=== PATIENT | female | born 1955 | race African-American/Black ===

== ENCOUNTER → 2017-04-03 | Emergency (ER) | payer SELFPAY | END | disposition home or self-care (01) | LOC: D.ER 16:31 | DX: M25.562 Pain in left knee (principal); M17.12 Unilateral primary osteoarthritis, left knee; I10 Essential (primary) hypertension ==

== ENCOUNTER 2018-02-21 10:24 | Emergency (ER) | payer SELFPAY ==
[2018-02-21 11:19] LABS: APPEARANCE HAZY (CLEAR); BACTERIA MODERATE /hpf (NONE SEEN); BILIRUBIN NEGATIVE (NEGATIVE); COLOR YELLOW (YELLOW); EPITHELIAL CELLS 0-5 /hpf (0-5); GLUCOSE NEGATIVE (NEGATIVE); KETONE NEGATIVE (NEGATIVE); NITRITE NEGATIVE (NEGATIVE); PROTEIN NEGATIVE (NEGATIVE); RED CELLS - URINE 0-5 /hpf (0-5); UROBILINOGEN NORMAL (NORMAL); WHITE CELLS - URINE 0-5 /hpf (0-5)
[2018-02-21 11:23] LABS: BASOPHILS 0.3 % (0-2); EOSINOPHILS 2.2 % (0-7); HEMATOCRIT 43.6 % (36.0-48.0); HEMOGLOBIN 13.9 g/dL (12-16); IMMATURE GRANULOCYTES 0.1 % (0-5); LYMPHOCYTES 24.6 % (15-50); MCH 27.4 pg (26.0-34.0); MCHC 31.9 g/dL (31.0-37.0); MEAN PLATELET VOLUME 9.2 fL (7.4-10.4); MONOCYTES 9.4 % (2-11); NEUTROPHILS 63.4 % (40-80); PLATELET COUNT 215 10x3/uL (130-400); RBC 5.07 10x6/uL (4.00-5.40); RDW 14.8 % (11.5-14.5); WBC 7.4 10x3/uL (4.8-10.8)
[2018-02-21 11:43] LABS: ALBUMIN 3.3 g/dL (3.4-5.0); ANION GAP 9.5 mmol/L (8-16); BILIRUBIN - TOTAL 0.33 mg/dL (0.2-1.3); CALCIUM 8.6 mg/dL (8.5-10.1); CARBON DIOXIDE 30.6 mmol/L (21.0-32.0); POTASSIUM - SERUM 4.1 mmol/L (3.5-5.1); PROTEIN - SERUM 7.8 g/dL (6.4-8.2)
== END 2018-02-21 14:56 | disposition home or self-care (01) ==
LOC: D.ER 10:24
PROVIDERS: Emergency Medicine; Nurse Practitioner Family
DX: N20.1 Calculus of ureter (principal); N23 Unspecified renal colic; I10 Essential (primary) hypertension

== ENCOUNTER 2018-03-01 14:03 | Emergency (ER) | payer SELFPAY ==
[2018-03-01 14:40] LABS: BASOPHILS 0.4 % (0-2); HEMATOCRIT 37.4 % (36.0-48.0); HEMOGLOBIN 12.3 g/dL (12-16); IMMATURE GRANULOCYTES 0.6 % (0-5); LYMPHOCYTES 18.2 % (15-50); MCH 27.3 pg (26.0-34.0); MCHC 32.9 g/dL (31.0-37.0); MCV 83.1 fL (80.0-100.0); MEAN PLATELET VOLUME 9.3 fL (7.4-10.4); MONOCYTES 9.2 % (2-11); NEUTROPHILS 70.6 % (40-80); RDW 14.9 % (11.5-14.5)
[2018-03-01 15:01] LABS: PLATELET COUNT 357 10x3/uL (130-400)
[2018-03-01 15:14] LABS: ALBUMIN 2.7 g/dL (3.4-5.0); ANION GAP 13.9 mmol/L (8-16); BILIRUBIN - TOTAL 0.66 mg/dL (0.2-1.3); CALCIUM 8.8 mg/dL (8.5-10.1); CARBON DIOXIDE 29.7 mmol/L (21.0-32.0); CREATININE - SERUM 1.4 mg/dL (0.6-1.3); POTASSIUM - SERUM 3.6 mmol/L (3.5-5.1); PROTEIN - SERUM 8.2 g/dL (6.4-8.2)
[2018-03-01 15:51] LABS: APPEARANCE HAZY (CLEAR); BILIRUBIN NEGATIVE (NEGATIVE); COLOR DK YELLOW (YELLOW); GLUCOSE NEGATIVE (NEGATIVE); KETONE NEGATIVE (NEGATIVE); NITRITE NEGATIVE (NEGATIVE); PROTEIN TRACE mg/dL (NEGATIVE); SPECIFIC GRAVITY 1.025 (1.005-1.020); UROBILINOGEN NORMAL (NORMAL)
[2018-03-01 15:56] LABS: BACTERIA MODERATE /hpf (NONE SEEN); EPITHELIAL CELLS 0-5 /hpf (0-5); RED CELLS - URINE OCC /hpf (0-5); WHITE CELLS - URINE 0-5 /hpf (0-5)
[2018-03-01 15:57] LABS: AMORPHOUS SEDIMENT >1+ /lpf (NONE SEEN)
== END 2018-03-01 17:40 | disposition home or self-care (01) ==
LOC: D.ER 14:03
PROVIDERS: Emergency Medicine
DX: R10.9 Unspecified abdominal pain (principal); N20.1 Calculus of ureter; I10 Essential (primary) hypertension

== ENCOUNTER 2019-04-04 12:59 | Emergency (ER) | payer SELFPAY ==
[~2019-04-04] VITALS: Ht 157.5 cm; Wt 154.5 kg
[2019-04-04 13:04] VITALS: Ht 157.5 cm; Wt 154.5 kg
[2019-04-04] MEDS ORDERED: VOLTAREN75 MG PO (15:14)
[2019-04-04 16:25] VITALS: BP 130/76
== END 2019-04-04 16:00 | disposition home or self-care (01) ==
LOC: D.ER 12:59
DX: M25.561 Pain in right knee (principal)

== ENCOUNTER 2019-04-22 15:13 | Inpatient (IN) | payer SELFPAY ==
[~2019-04-22] VITALS: Ht 157.5 cm; Wt 145.1 kg
[~2019-04-22 15:13] MED LIST: VOLTAREN75 MG PO
[2019-04-22 15:46] LABS: APPEARANCE CLOUDY (CLEAR); BILIRUBIN NEGATIVE (NEGATIVE); COLOR YELLOW (YELLOW); GLUCOSE NEGATIVE (NEGATIVE); KETONE NEGATIVE (NEGATIVE); NITRITE POSITIVE (NEGATIVE); PROTEIN 2+ mg/dL (NEGATIVE); RED CELLS - URINE 0-5 /hpf (0-5)
[2019-04-22 15:47] LABS: BACTERIA FEW /hpf (NONE SEEN); EPITHELIAL CELLS 0-5 /hpf (0-5)
[2019-04-22 15:59] LABS: WBC 22.8 10x3/uL (4.8-10.8)
[2019-04-22 16:00] LABS: BASOPHILS 0.1 % (0-2); EOSINOPHILS 0 % (0-7); HEMATOCRIT 40.2 % (36.0-48.0); HEMOGLOBIN 13.8 g/dL (12-16); LYMPHOCYTES 5.2 % (15-50); MCH 27.8 pg (26.0-34.0); MCHC 34.3 g/dL (31.0-37.0); MEAN PLATELET VOLUME 10.1 fL (7.4-10.4); MONOCYTES 4.2 % (2-11); NEUTROPHILS 80.5 % (40-80); PLATELET COUNT 125 10x3/uL (130-400); RBC 4.96 10x6/uL (4.00-5.40); RDW 15.7 % (11.5-14.5)
[2019-04-22 16:13] LABS: ALBUMIN 2.8 g/dL (3.4-5.0); ALKALINE PHOSPHATASE 83 U/L (46-116); ALT (SGPT) 50 U/L (10-68); BILIRUBIN - TOTAL 1.07 mg/dL (0.2-1.3); CALC OSMOLALITY 290 mosm/kg (275-300); CALCIUM 8.6 mg/dL (8.5-10.1); CARBON DIOXIDE 26.5 mmol/L (21.0-32.0); CHLORIDE - SERUM 103 mmol/L (98-107); CREATININE - SERUM 1.8 mg/dL (0.6-1.3); GLUCOSE 114 mg/dL (74-106); POTASSIUM - SERUM 3.6 mmol/L (3.5-5.1); PROTEIN - SERUM 7.5 g/dL (6.4-8.2); SODIUM 139 mmol/L (136-145); UREA NITROGEN 47 mg/dL (7-18); eGFR NON AFRICAN AMERICAN 30 mL/min (90-120)
[2019-04-22 16:17] LABS: AMYLASE - SERUM 26 U/L (25-115); LIPASE 67 U/L (73-393); TROPONIN-I < 0.017 ng/mL (0.000-0.060)
[2019-04-22 19:10] VITALS: BP 110/60
--- NOTE | 2019-04-22 19:10 | NUR ---
BESIDE REPORT FROM AFSANEH FARRELL. PT RESTING DENIES COMPLAINTS AT THIS TIME.
--- NOTE | 2019-04-22 20:30 | NUR ---
PT AMBULATED TO BATHROOM INDEPENDENTLY AT THIS TIME.
--- NOTE | 2019-04-22 21:20 | NUR ---
RECEIVED PT FROM ER VIA W/C. AMBULATORY BUT SLIGHTLY UNSTEADY. DROWSY FROM MEDS GIVEN IN ER. DENIES PAIN. ORIENTED X4. STATES SHE HAS HAD N/V/D X3 DAYS. NO ACTIVE VOMITING AT THIS TIME. NS @ 125 MLHR INFUSING IN RT THUMB WITHOUT DIFF. ABD OBESE, NONTENDER. BS PRESENT X4 QUADS. RESP EVEN AND NONLABORED. NO EDEMA NOTED. NO DISTRESS. SR ELEVATED X2. CL IN REACH.
[2019-04-22 22:45] VITALS: BP 104/61; BMI 58.7
[2019-04-23] VITALS: BP 113/63
--- NOTE | 2019-04-23 01:07 | NUR ---
TELEMETRY SHOWS SR WITH RATE OF 74. NO DISTRESS. CL IN REACH.
[2019-04-23 04:00] VITALS: BP 121/66
--- NOTE | 2019-04-23 04:14 | NUR ---
MEDICATED WITH TYLENOL FOR C/O LEG PAIN. CL IN REACH.
[2019-04-23 05:44] LABS: BASOPHILS 0.1 % (0-2); EOSINOPHILS 0.1 % (0-7); HEMATOCRIT 36.8 % (36.0-48.0); HEMOGLOBIN 12.3 g/dL (12-16); IMMATURE GRANULOCYTES 0.5 % (0-5); LYMPHOCYTES 6.1 % (15-50); MCH 27.2 pg (26.0-34.0); MCHC 33.4 g/dL (31.0-37.0); MCV 81.4 fL (80.0-100.0); MEAN PLATELET VOLUME 10.1 fL (7.4-10.4); MONOCYTES 4.7 % (2-11); NEUTROPHILS 88.5 % (40-80); PLATELET COUNT 120 10x3/uL (130-400); RBC 4.52 10x6/uL (4.00-5.40); RDW 15.7 % (11.5-14.5)
[2019-04-23 05:52] LABS: WBC 16.1 10x3/uL (4.8-10.8)
[2019-04-23 06:14] LABS: ALBUMIN 2.4 g/dL (3.4-5.0); ANION GAP 15.1 mmol/L (8-16); BILIRUBIN - TOTAL 1.06 mg/dL (0.2-1.3); CALCIUM 8.1 mg/dL (8.5-10.1); CARBON DIOXIDE 25.3 mmol/L (21.0-32.0); CREATININE - SERUM 1.2 mg/dL (0.6-1.3); POTASSIUM - SERUM 3.4 mmol/L (3.5-5.1); PROTEIN - SERUM 6.8 g/dL (6.4-8.2)
--- NOTE | 2019-04-23 07:25 | NUR ---
PT RESTING EYES CLOSED NO SIGNS FO DISTRESS NOTED EASY RISE AND FALL OF CHEST CL IN REACH
[2019-04-23 08:51] VITALS: BP 116/59
[2019-04-23 12:41] VITALS: BP 112/67
--- NOTE | 2019-04-23 16:54 | NUR ---
I have reviewed this patient and I concur with the Shift Assessment completed by the Licensed Practical Nurse today this shift.
[2019-04-23 17:21] VITALS: BP 102/49
[2019-04-24] VITALS: BP 116/65
[2019-04-24 04:00] VITALS: BP 94/53
[2019-04-24 06:43] LABS: ALBUMIN 2.1 g/dL (3.4-5.0); ANION GAP 10.4 mmol/L (8-16); BILIRUBIN - TOTAL 0.67 mg/dL (0.2-1.3); CALCIUM 7.9 mg/dL (8.5-10.1); CARBON DIOXIDE 27.3 mmol/L (21.0-32.0); CREATININE - SERUM 0.9 mg/dL (0.6-1.3); POTASSIUM - SERUM 3.7 mmol/L (3.5-5.1); PROTEIN - SERUM 6.1 g/dL (6.4-8.2)
[2019-04-24 07:09] LABS: BASOPHILS 0.2 % (0-2); EOSINOPHILS 0.6 % (0-7); HEMOGLOBIN 10.9 g/dL (12-16); IMMATURE GRANULOCYTES 0.4 % (0-5); LYMPHOCYTES 15.8 % (15-50); MCH 26.9 pg (26.0-34.0); MCV 81.5 fL (80.0-100.0); MEAN PLATELET VOLUME 10.6 fL (7.4-10.4); MONOCYTES 14.2 % (2-11); NEUTROPHILS 68.8 % (40-80); PLATELET COUNT 134 10x3/uL (130-400); RBC 4.05 10x6/uL (4.00-5.40); RDW 15.9 % (11.5-14.5)
--- NOTE | 2019-04-24 08:45 | NUR ---
PATIENT IN BED WITH NO COMPLAINTS OR SIGNS OF DISTRESS. IV INTACT. CALL LIGHT WITHIN REACH.
[2019-04-24 09:15] VITALS: BP 114/71
[2019-04-24 13:49] VITALS: Ht 157.5 cm; Wt 145.1 kg
[2019-04-24 14:01] VITALS: BP 114/73
--- NOTE | 2019-04-24 17:20 | NUR ---
PATIENT PULLED IV OUT WITH CATH TIP INTACT. WANTS TO TAKE SHOWER BEFORE RESTART. ASSISTED TO SHOWER, BED CHANGED AT THIS TIME. WILL CALL WHEN FINISHED. CALL LIGHT WITHIN REACH.
[2019-04-24 18:29] VITALS: BP 114/54
--- NOTE | 2019-04-24 19:34 | NUR ---
PATIENT IN BED WITH NO COMPLAINTS. TRIED TO RESTART IV AT THIS TIME. PATIENT REFUSED AND STATED SHE WOULD CALL WHEN SHE IS READY BECAUSE SHE WANTS TO FINISH EATING FIRST. CALL LIGHT WITHIN REACH.
[2019-04-24 20:00] VITALS: BP 112/57
--- NOTE | 2019-04-24 22:00 | NUR ---
IV RESITED X2 ATTEMPTS TO LEFT HAND. WITHOUT OTHER NEEDS. CL IN REACH, WILL CTM
[2019-04-25] VITALS: BP 134/68
--- NOTE | 2019-04-25 02:30 | NUR ---
TYLENOL GIVEN FOR TEMP 101.2 AND HEADACHE
[2019-04-25 04:00] VITALS: BP 102/54
[2019-04-25 05:20] LABS: HEMATOCRIT 35.4 % (36.0-48.0); HEMOGLOBIN 11.7 g/dL (12-16); MCHC 33.1 g/dL (31.0-37.0); MCV 81.6 fL (80.0-100.0); MEAN PLATELET VOLUME 10.5 fL (7.4-10.4); RBC 4.34 10x6/uL (4.00-5.40); RDW 15.7 % (11.5-14.5); WBC 7.5 10x3/uL (4.8-10.8)
[2019-04-25 05:34] LABS: ALBUMIN 2.4 g/dL (3.4-5.0); ALKALINE PHOSPHATASE 93 U/L (46-116); ALT (SGPT) 49 U/L (10-68); BILIRUBIN - TOTAL 0.69 mg/dL (0.2-1.3); CALCIUM 8.6 mg/dL (8.5-10.1); CARBON DIOXIDE 25.9 mmol/L (21.0-32.0); CHLORIDE - SERUM 108 mmol/L (98-107); CREATININE - SERUM 0.8 mg/dL (0.6-1.3); GLUCOSE 128 mg/dL (74-106); POTASSIUM - SERUM 3.6 mmol/L (3.5-5.1); PROTEIN - SERUM 6.9 g/dL (6.4-8.2); SODIUM 143 mmol/L (136-145); eGFR NON AFRICAN AMERICAN 77 mL/min (90-120)
[2019-04-25 05:52] LABS: CALC OSMOLALITY 285 mosm/kg (275-300); UREA NITROGEN 11 mg/dL (7-18)
[2019-04-25 06:30] LABS: PLATELET COUNT 164 10x3/uL (130-400)
--- NOTE | 2019-04-25 08:00 | NUR ---
PATIENT IN BED WITH IV INTACT. NO COMPLAINTS OR SIGNS OF DISTRESS. EYES CLOSED RESTING QUIETLY.
[2019-04-25 08:10] LABS: LYMPHOCYTES 27 % (15-50); MONOCYTES 20 % (2-11); NEUTROPHILS 50 % (40-80); PLATELET ESTIMATE NORMAL
[2019-04-25 08:11] LABS: ANISOCYTOSIS OCC
[2019-04-25 08:45] VITALS: BP 111/81
[2019-04-25 14:30] VITALS: BP 113/74
[2019-04-25 16:47] VITALS: BP 129/72
--- NOTE | 2019-04-25 18:11 | NUR ---
PATIENT SITTING UP IN BED WITH NO COMPLAINTS OR SIGNS OF DISTRESS AT THIS TIME. IV INTACT. CALL LIGHT WITHIN REACH. FAMILY AT BEDSIDE.
--- NOTE | 2019-04-25 19:45 | NUR ---
PT SITTING UP IN BEDSIDE CHAIR, WITHOUT DISTRESS. ALERT AND ORIENTED. STATES PAIN 6/10 IN RIGHT FLANK. WILL GIVE NORCO ORDERED. DENIES OTHER NEEDS. CL IN REACH, WILL CTM
[2019-04-25] MEDS ORDERED: NAPROSYN500 MG PO (19:51)
[2019-04-25] MEDS ORDERED: XANAX0.25 MG PO (19:52)
[2019-04-25] MEDS ORDERED: AMBIEN10 MG PO (19:52)
[2019-04-25] MEDS ORDERED: ARTHROTEC EC 71 EACH PO (19:52)
[2019-04-25] MEDS ORDERED: HYDROCHLOROTHIA50 MG PO (19:54)
[2019-04-25] MEDS ORDERED: NORVASC10 MG PO (19:54)
[2019-04-25] MEDS ORDERED: COZAAR50 MG PO (19:54)
[2019-04-25] MEDS ORDERED: PROTONIX40 MG PO (19:55)
[2019-04-25 20:00] VITALS: BP 115/68
--- NOTE | 2019-04-25 22:00 | NUR ---
PT REQUESTED AND GIVEN HEAT PACK FOR RIGHT FLANK. DENIES OTHER NEEDS
[2019-04-26] VITALS: BP 118/66
[2019-04-26 04:00] VITALS: BP 105/70
--- NOTE | 2019-04-26 04:00 | NUR ---
PT CONSENTED TO PROCEDURE AND BLOOD TRANSFUSION BUT REFUSES ANESTHESIA. PT STATES SHE HAD A REACTION THE LAST TIME SHE WAS PUT UNDER. COULD NOT STATE HOW OR WHEN. SPOKE WITH PT DAUGHTER OVER PHONE, SHE STATES PT HAD THIS SAME PROCEDURE THIS PAST YEAR AND THE ANESTHESIA CAUSED HER BLOOD PRESSURE TO "SHOOT UP" AND HER "OXYGEN DROP" AND THEY HAD A HARD TIME WAKING HER UP. SHE STATED THE ANESTHESIOLOGIST SPOKE WITH THEM AFTER AND STATED SHE DID NOT NEED TO BE PUT UNDER THIS WAY AGAIN. DAUGHTER COULD NOT GIVE MORE DETAILS, STATES SHE WILL BE BY THIS AM
[2019-04-26 06:43] LABS: BASOPHILS 0.5 % (0-2); EOSINOPHILS 1.4 % (0-7); HEMATOCRIT 34.4 % (36.0-48.0); HEMOGLOBIN 11.3 g/dL (12-16); IMMATURE GRANULOCYTES 1.6 % (0-5); LYMPHOCYTES 29.8 % (15-50); MCHC 32.8 g/dL (31.0-37.0); MCV 82.3 fL (80.0-100.0); MEAN PLATELET VOLUME 10.1 fL (7.4-10.4); MONOCYTES 19.4 % (2-11); NEUTROPHILS 47.3 % (40-80); RBC 4.18 10x6/uL (4.00-5.40); RDW 15.9 % (11.5-14.5); WBC 6.5 10x3/uL (4.8-10.8)
[2019-04-26 07:01] LABS: ALBUMIN 2.4 g/dL (3.4-5.0); ALKALINE PHOSPHATASE 82 U/L (46-116); ALT (SGPT) 47 U/L (10-68); BILIRUBIN - TOTAL 0.56 mg/dL (0.2-1.3); CALC OSMOLALITY 285 mosm/kg (275-300); CALCIUM 8.6 mg/dL (8.5-10.1); CARBON DIOXIDE 28.1 mmol/L (21.0-32.0); CHLORIDE - SERUM 108 mmol/L (98-107); CREATININE - SERUM 0.8 mg/dL (0.6-1.3); GLUCOSE 96 mg/dL (74-106); POTASSIUM - SERUM 3.4 mmol/L (3.5-5.1); SODIUM 144 mmol/L (136-145); UREA NITROGEN 9 mg/dL (7-18); eGFR NON AFRICAN AMERICAN 77 mL/min (90-120)
[2019-04-26 07:11] LABS: PLATELET COUNT 203 10x3/uL (130-400)
[2019-04-26 08:39] VITALS: BP 139/77
[2019-04-26 13:28] VITALS: BP 94/72
--- NOTE | 2019-04-26 13:32 | NUR ---
PT HAS ASKED FOR SOME WATER THROUGHT OUT THE DAY AND THIS NURSE HAS INFORMED THE PT THAT SHE IS NPO FOR HER PROCEDURE WHICH MEANS THAT SHE CAN NOT HAVE ANY THING TO EAT OR DRINK. PT VOICED UNDERSTANDING.THE NURSE OBSERVE A CUP OF CRANBERRY JUICE ON THE PT BEDSIDE TABLE AND THIS NURSE THEN EDUCATED THE PT DANGER OF DRINKING AND HAVING SURGERY. C/L IN REACH AT BEDSIDE.
--- NOTE | 2019-04-26 17:25 | MORECARE ---
CASE MANAGEMENT DISCHARGE SUMMARY PATIENT: HAILEY MEDINA UNIT: [id number] ADM DATE: 04/22/19 AGE: 64 : 57 SEX: F ROOM/BED: D.2236 AUTHOR: IAN MEJIA PHYSICIAN: REFERRING PHYSICIAN: ROGE ORELLANA MD DATE OF SERVICE: 04/26/19 Discharge Plan Patient Name: HAILEY MEDINA Facility: [facility]:[place] : 1955 Planned Disposition: Home Anticipated Discharge Date: Discharge Date: Expected LOS: Initial Reviewer: [email or web address] Initial Review Date: 04/26/2019 Generated: 04/26/19 6:25 pm Comments DCP- Discharge Planning Updated by [email or web address]: Ambar Alvares on 04/26/19 4:[address] Patient Name: HAILEY MEDINA Admission Status: ER Accout number: [id number] Admission Date: 04-22-2019 : 1955 Admission Diagnosis:SEPSIS, UNSPECIFIED ORGANISM Attending: ROGE ORELLANA Current LOS: 4 Anticipated DC Date: Planned Disposition: Home Primary Insurance: UNINSURED DISCOUNT PLAN Discharge Planning Comments: CM met with patient to complete initial dc planning assessment. CM educated patient on the CM role and verbal consent given by patient to complete assessment. Patient lives at home with her daughter (Charan Medina). At discharge patient plans to go to her daughter's (Maurice) home here in [place] prior to returning to [place] and feels this is a safe discharge. CM discussed availability of home health, rehab services, and medical equipment. Patient denied known discharge needs at this time. She states that she will be able to get her prescriptions needed at discharge. CM will continue to follow and will assist as needed with dc plans/needs. Third Steel Pourer: Ambar Alvares DCPIA - Discharge Planning Initial Assessment Updated by [email or web address]: Ambar Alvares on 04/26/19 5:21 pm * Is the patient Alert and Oriented? Yes * How many steps to enter\exit or inside your home? 0/0 * PCP Dr. Swanson in [place] * Pharmacy [facility] on [facility] while in [place] * Preadmission Environment Home with Family * ADLs Independent * Equipment None * List name and contact numbers for known caregivers / representatives who currently or will assist patient after discharge: Maurice Medina - R - [phone] * Verbal permission to speak to the caregivers and representatives has been obtained from the patient. Yes * Community resources currently utilized None * Additional services required to return to the preadmission environment? No * Can the patient safely return to the preadmission environment? Yes * Has this patient been hospitalized within the prior 30 days at any hospital? No Patient Name: HAILEY MEDINA Page [id number] at 1725 All edits/amendments must be made on the electronic document DICTATION DATE: 04/26/191724 KNOT PICKER CLOTH: MELLO 04/26/191724 RPT#: [id number] DC DATE: STATUS: ADM IN [facility] [address] [place] [address] END OF REPORT
[2019-04-26 19:04] VITALS: BP 125/68
--- NOTE | 2019-04-26 19:15 | NUR ---
PT BACK TO FLOOR FROM SX, VSS. ALERT AND ORIENTED. IV RIGHT HAND INFUSING NS @ 75. TELE MONITOR PLACED BACK ON PT. ASSISTED PT TO BATHROOM TO VOID. PT REQUESTED AND GIVEN CRANBERRY JUICE AND JELLO. FAMILY AT BEDSIDE. WITHOUT OTHER NEEDS AT THIS TIME. CL IN REACH, WILL CTM
[2019-04-26 20:00] VITALS: BP 112/69
[2019-04-27 03:15] VITALS: BP 108/66
[2019-04-27 04:00] VITALS: BP 128/69
[2019-04-27 06:01] LABS: BASOPHILS 0.2 % (0-2); EOSINOPHILS 0 % (0-7); HEMATOCRIT 34.5 % (36.0-48.0); HEMOGLOBIN 11.2 g/dL (12-16); IMMATURE GRANULOCYTES 1.5 % (0-5); LYMPHOCYTES 19.5 % (15-50); MCH 26.9 pg (26.0-34.0); MCHC 32.5 g/dL (31.0-37.0); MCV 82.7 fL (80.0-100.0); MONOCYTES 4.2 % (2-11); NEUTROPHILS 74.6 % (40-80); PLATELET COUNT 268 10x3/uL (130-400); RBC 4.17 10x6/uL (4.00-5.40); RDW 16.1 % (11.5-14.5); WBC 5.3 10x3/uL (4.8-10.8)
[2019-04-27 06:07] LABS: ALBUMIN 2.4 g/dL (3.4-5.0); ALKALINE PHOSPHATASE 76 U/L (46-116); ALT (SGPT) 40 U/L (10-68); BILIRUBIN - TOTAL 0.42 mg/dL (0.2-1.3); CALC OSMOLALITY 288 mosm/kg (275-300); CALCIUM 8.8 mg/dL (8.5-10.1); CARBON DIOXIDE 27.8 mmol/L (21.0-32.0); CHLORIDE - SERUM 108 mmol/L (98-107); CREATININE - SERUM 0.6 mg/dL (0.6-1.3); GLUCOSE 125 mg/dL (74-106); POTASSIUM - SERUM 3.4 mmol/L (3.5-5.1); PROTEIN - SERUM 7.2 g/dL (6.4-8.2); SODIUM 145 mmol/L (136-145); UREA NITROGEN 11 mg/dL (7-18); eGFR NON AFRICAN AMERICAN > 90 mL/min (90-120)
--- NOTE | 2019-04-27 08:00 | OP ---
PATIENT NAME: HAILEY MEDINA MEDICAL RECORD: [id number] :57 LOCATION:D.MS [id number] ADMISSION DATE:04/22/19 SURGEON: MARIO CALVO MD DATE OF OPERATION: 04/26/2019 SURGEON: Mario Calvo MD ANESTHESIA: TIVA by ALIA Wright DIAGNOSIS: Right renal stone, 10 mm with emphysematous pyelonephritis with Escherichia coli. PROCEDURES: Cystoscopy, right retrograde pyelogram, right ureteral stent insertion 6-Equatorial Guinean x 22 cm without string attached. BLOOD LOSS: None. CLINICAL HISTORY: This is a 64-year-old female, who claims that she is not diabetic. She came in with fevers, chills, and rigors. She had a very high elevated white blood cell count. She was also complaining of right flank pain. A CT scan shows a large 10-mm stone at the right UP junction causing hydronephrosis. There are also emphysematous pyelonephritis in the right kidney. Blood and urine cultures are growing E. coli. She is on the appropriate antibiotics. She comes today to have a right ureteral stent inserted to decompress the right kidney. Since she was already on IV antibiotics on the floor, we did not give her any further IV antibiotics in the OR. DESCRIPTION OF PROCEDURE: The patient was given IV sedation. She was then placed into the lithotomy position and prepped and draped. Fluoroscopy did not reveal any radiodense stone at all in the right kidney. Going into the bladder, there was cystitis cystica, but no bladder tumors. There are single ureteral orifices on each side. The right ureteral orifice was intubated with a 5-Equatorial [place]inean open-ended ureteral catheter and a retrograde pyelogram was obtained by injecting diluted contrast. The contrast in the renal pelvis highlighted a radiolucent stone in the renal pelvis. A Sensor wire was then pushed up into the renal pelvis. It had difficulty going past the stone and I had to use a ureteral catheter to dislodge the stone slightly to allow the wire to go past. The ureteral catheter was then removed, leaving the wire in place. Over the wire, we inserted a 6-Equatorial [place]inean x 22 cm right ureteral stent. The string on the distal end of the stent has been removed. As the stone is most likely a uric acid stone, I will start her on urinary alkalinization with potassium citrate. Once the stent was in correct position, the wire was withdrawn entirely. The distal end of the stent was pushed into the bladder using a pusher. TRANSINT:[id number] Voice Confirmation ID: [id number] DOCUMENT ID: [id number] OPERATIVE REPORT [id number] HAILEY MEDINA ROBERT S MD at 0800 CC: [id number] DICTATION DATE: 04/26/191820 ALARM INSTALLATION TECHNICIAN: 04/26/19 2328 ADM IN [place] [id number] [place] [address]
[2019-04-27 09:29] VITALS: BP 136/78
[2019-04-27 13:35] VITALS: BP 116/68
[2019-04-27] MEDS ORDERED: CIPRO500 MG PO (15:19)
[2019-04-27] MEDS ORDERED: PHENAZOPYRIDIN100 MG PO (15:20)
--- NOTE | 2019-04-27 15:47 | MORECARE ---
CASE MANAGEMENT DISCHARGE SUMMARY PATIENT: HAILEY MEDINA UNIT: [id number] ADM DATE: 04/22/19 AGE: 64 : 57 SEX: F ROOM/BED: D.2236 AUTHOR: IAN MEJIA PHYSICIAN: REFERRING PHYSICIAN: ROGE ORELLANA MD DATE OF SERVICE: 04/27/19 Discharge Plan Patient Name: HAILEY MEDINA Facility: [facility]:[place] : 1955 Planned Disposition: Home Anticipated Discharge Date: Discharge Date: Expected LOS: Initial Reviewer: [email or web address] Initial Review Date: 04/26/2019 Generated: 04/27/19 4:47 pm Comments DCP- Discharge Planning Updated by [email or web address]: Ambar Alvares on 04/27/19 2:[address] Patient Name: HAILEY MEDINA Encounter No: [id number] : 1955 Primary Insurance: UNINSURED DISCOUNT PLAN Anticipated DC Date: Planned Disposition: Home External Planned Provider: : DCP follow-up note: Patient and family in agreement with discharge plan. No changes to plan. Case management will follow and assist as needed. Ambar Alvares DCP- Discharge Planning Updated by [email or web address]: Ambar Alvares on 04/26/19 4:[address] Patient Name: HAILEY MEDINA Admission Status: ER Accout number: [id number] Admission Date: 04-22-2019 : 1955 Admission Diagnosis:SEPSIS, UNSPECIFIED ORGANISM Attending: ROGE ORELLANA Current LOS: 4 Anticipated DC Date: Planned Disposition: Home Primary Insurance: UNINSURED DISCOUNT PLAN Discharge Planning Comments: CM met with patient to complete initial dc planning assessment. CM educated patient on the CM role and verbal consent given by patient to complete assessment. Patient lives at home with her daughter (Charan Medina). At discharge patient plans to go to her daughter's (Maurice) home here in [place] prior to returning to [place] and feels this is a safe discharge. CM discussed availability of home health, rehab services, and medical equipment. Patient denied known discharge needs at this time. She states that she will be able to get her prescriptions needed at discharge. CM will continue to follow and will assist as needed with dc plans/needs. Technical System Analyst: Ambar Alvares DCPIA - Discharge Planning Initial Assessment Updated by [email or web address]: Ambar Dia on 04/26/19 5:21 pm * Is the patient Alert and Oriented? Yes * How many steps to enter\exit or inside your home? 0/0 * PCP Dr. Swanson in [place] * Pharmacy [facility] on [facility] in [place] * Preadmission Environment Home with Family * ADLs Independent * Equipment None * List name and contact numbers for known caregivers / representatives who currently or will assist patient after discharge: Maurice Medina [facility] - [phone] * Verbal permission to speak to the caregivers and representatives has been obtained from the patient. Yes * Community resources currently utilized None * Additional services required to return to the preadmission environment? No * Can the patient safely return to the preadmission environment? Yes * Has this patient been hospitalized within the prior 30 days at any hospital? No Last DP export: 04/26/19 4:25 pm Patient Name: HAILEY MEDINA Page 22409 at 1547 All edits/amendments must be made on the electronic document DICTATION DATE: 04/27/19 154 SHELLACKER: MELLO 04/27/191545 RPT#: [id number] DC DATE: STATUS: ADM IN [facility] [address] [place] [address] END OF REPORT
--- NOTE | 2019-04-27 16:27 | NUR ---
PT RESTING IN BED. NO SIGNS OF DISTRESS. IV TO RIGHT HAND PATENT NO REDNESS OR TENDERNESS. HAS TELEMETRY ON NORMAL SINUS. COMPLAINS OF PAIN. MEDICAITION GIVEN. DENIES ANY FUTHER NEED AT THIS TIME. CALL LIGHT IN REACH. BED LOW POSITION. NO FAMILY AT BEDSIDE AT THIS TIME.
--- NOTE | 2019-04-27 18:19 | NUR ---
DISCHARGE INSTRUCTIONS GIVEN. SEEMS TO UNDERSTAND INSTRUCTIONS. IV OUT TIP INTACT. TELEMETRY OFF. LEFT WITH HOSPITAL STAFF TO GO HOME WITH FAMILY IN PERSONAL RIDE.
== END 2019-04-27 18:20 | disposition home or self-care (01) | DRG 871 ==
LOC: D.ER 15:13 → D.MS 20:30
PROVIDERS: Family Medicine; ADMIT Family Medicine; ATTEND Family Medicine
DX: A41.9 Sepsis, unspecified organism (principal); N17.0 Acute kidney failure with tubular necrosis; N17.9 Acute kidney failure, unspecified; N13.6 Pyonephrosis; Z68.43 Body mass index [BMI] 50.0-59.9, adult; N13.2 Hydronephrosis with renal and ureteral calculous obstruction; N20.0 Calculus of kidney; E66.01 Morbid (severe) obesity due to excess calories; E87.6 Hypokalemia; E83.51 Hypocalcemia; E88.09 Other disorders of plasma-protein metabolism, not elsewhere classified

== ENCOUNTER → 2019-05-17 18:56 | Outpatient (CLI) | payer SELFPAY ==
[2019-04-24 13:49] VITALS: BMI 58.5
[~2019-05-17 18:56] MED LIST changes: +AMBIEN10 MG PO; +ARTHROTEC EC 71 EACH PO; +CIPRO500 MG PO; +COZAAR50 MG PO; +HYDROCHLOROTHIA50 MG PO; +NAPROSYN500 MG PO; +NORVASC10 MG PO; +PHENAZOPYRIDIN100 MG PO; +PROTONIX40 MG PO; +XANAX0.25 MG PO
== END | disposition home or self-care (01) ==
LOC: D.LABREF 18:56
PROVIDERS: ATTEND Urology
DX: N39.0 Urinary tract infection, site not specified (principal)

== ENCOUNTER 2019-05-30 06:23 | Day surgery (SDC) | payer BC ==
[2019-05-29 14:16] LABS: BASOPHILS 0.5 % (0-2); EOSINOPHILS 3.6 % (0-7); HEMATOCRIT 41.7 % (36.0-48.0); HEMOGLOBIN 13.3 g/dL (12-16); LYMPHOCYTES 47.7 % (15-50); MCH 26.8 pg (26.0-34.0); MCHC 31.9 g/dL (31.0-37.0); MCV 83.9 fL (80.0-100.0); MEAN PLATELET VOLUME 9.2 fL (7.4-10.4); MONOCYTES 7.7 % (2-11); NEUTROPHILS 40.5 % (40-80); PLATELET COUNT 219 10x3/uL (130-400); RBC 4.97 10x6/uL (4.00-5.40); RDW 15.6 % (11.5-14.5); WBC 4.4 10x3/uL (4.8-10.8)
[2019-05-29 14:25] LABS: APTT 27.2 SECONDS (22.8-39.4); INR 1.07 (0.85-1.17); PROTIME 13.4 SECONDS (11.6-15.0)
[2019-05-29 14:31] LABS: CALC OSMOLALITY 285 mosm/kg (275-300); CALCIUM 8.7 mg/dL (8.5-10.1); CARBON DIOXIDE 33.2 mmol/L (21.0-32.0); CHLORIDE - SERUM 105 mmol/L (98-107); CREATININE - SERUM 0.8 mg/dL (0.6-1.3); GLUCOSE 91 mg/dL (74-106); POTASSIUM - SERUM 4.2 mmol/L (3.5-5.1); SODIUM 143 mmol/L (136-145); UREA NITROGEN 14 mg/dL (7-18); eGFR NON AFRICAN AMERICAN 77 mL/min (90-120)
[~2019-05-30] VITALS: Ht 157.5 cm; Wt 135.6 kg
--- NOTE | ~2019-05-30 | HEMODYNAMI ---
PATIENT:HAILEY MEDINA MEDICAL RECORD: [id number] : 57 [id number] ADMISSION DATE: 05/30/19 Generatedon:05/30/20199:27 Patient name: HAILEY MEDINA Patient #: [id number] SSN: DO B: 1955 Date of study: 05/30/2019 Page: Of Hemodynamic Procedure Report Patient Data Patient Demographics Procedure consent was obtained First Name: HAILEY Gender: Female Last Name: ADAM : 1955 Patient #: [id number] Age: 64 year(s) Race: Black Additional ID: [id number] Contact details Address: [address] [address] State: [place] City: [place] Zip code: [address] Admission Admission Data Admission Date: 05/30/2019 Admission Time: 6:23 Procedure Procedure Types Cath Procedure Peripheral Cath Diagnostic Procedure Nephro Perc Neph Uret Cath Procedure Description Procedure Date Procedure Date: 05/30/2019 Procedure Start Time: 8:20 Procedure Staff Name Function Dangelo Omer MD Performing Physician Rai Badillo RT Monitor AL PITTS RT Scrub Nae Quiroz RN Nurse Procedure Data Cath Procedure Fluoroscopy Diagnostic fluoroscopy Total fluoroscopy Time: time: 26.9 min 26.9 min Diagnostic fluoroscopy Total fluoroscopy dose: dose: 1833 mGy 1833 mGy Contrast Material Contrast Material Type Amount (ml) Isovue 300 40 Diagnostic catheters Device Type Used For End Catheter Placement Merit Impress KA 2 5Fr 40CM catheter ([id number]) Procedure Medications Medication Administration Route Dosage Heparin Flush Bag added to field 1 bags (1000units/500ml NS) Lidocaine 1% added to field 20 Fentanyl I.V. 50 mcg Versed I.V. 1 mg Fentanyl I.V. 25 mcg Versed I.V. 0.5 mg Fentanyl I.V. 25 mcg Versed I.V. 0.5 mg Fentanyl I.V. 25 mcg Versed I.V. 0.5 mg Fentanyl I.V. 25 mcg Versed I.V. 0.5 mg Hemodynamics Rest Heart Rate: 54 (bpm) Snapshots Pre Cath Intra NCS Post Cath Vital Signs Time Heart Resp SPO2 etCO2 NIBP (mmHg) Rhythm Pain Sedation Rate (ipm) (%) (mmHg) Status Level (bpm) 7:58:00 55 17 36.8 133/90(107) NSR 0 (11) 10(A) , No pain 8:02:08 56 19 36 124/74(100) NSR 0 (11) 10(A) , No pain 8:06:14 56 11 100 35.3 139/84(96) NSR 0 (11) 10(A) , No pain 8:10:22 55 27 100 35.3 136/80(110) NSR 0 (11) 10(A) , No pain 8:14:40 55 7 100 37.5 123/68(101) NSR 0 (11) 10(A) , No pain 8:19:30 55 9 99 36.7 133/88(115) NSR 0 (11) 10(A) , No pain 8:23:40 54 23 98 36.7 135/88(112) NSR 0 (11) 8(A) , No pain 8:27:50 55 18 98 36.7 123/81(96) NSR 0 (11) 8(A) , No pain 8:32:02 56 18 98 33.8 125/73(103) NSR 0 (11) 8(A) , No pain 8:36:08 55 18 98 30.8 126/77(94) NSR 0 (11) 8(A) , No pain 8:41:07 55 11 98 30.8 Measuring NSR 0 (11) 8(A) , No pain 8:41:25 56 10 97 30 123/79(99) NSR 0 (11) 8(A) , No pain 8:45:33 55 15 97 36.8 132/83(111) NSR 0 (11) 8(A) , No pain 8:49:45 55 5 97 36 128/82(103) NSR 0 (11) 8(A) , No pain 8:54:40 54 24 97 33 132/88(99) NSR 0 (11) 8(A) , No pain 8:58:52 54 16 98 32.3 132/82(106) NSR 0 (11) 8(A) , No pain 9:03:51 55 14 99 39.7 134/82(117) NSR 0 (11) 8(A) , No pain 9:08:05 53 14 99 41.2 144/82(103) NSR 0 (11) 8(A) , No pain 9:13:04 53 14 98 42.7 Measuring NSR 0 (11) 8(A) , No pain 9:13:06 53 14 98 42.7 131/82(102) NSR 0 (11) 8(A) , No pain 9:17:18 56 17 98 41.3 124/84(104) NSR 0 (11) 8(A) , No pain 9:22:17 54 24 100 40.5 Measuring NSR 0 (11) 8(A) , No pain 9:22:19 54 24 99 40.5 122/85(100) NSR 0 (11) 8(A) , No pain 9:26:27 53 7 97 40.5 128/73(93) NSR 0 (11) 8(A) , No pain Medications Time Medication Route Dose Verified Delivered Reason Notes Effect iveness by by 8:13:55 Heparin Flush added 1 Dangelo Pierson used for Bag to bags Negra Omer procedure (1000units/500ml field MD PRATT NS) 8:14:10 Lidocaine 1% added 20ml Dangelo Pierson used for to vial Negra Omer procedure field MD PRATT 8:22:05 Fentanyl I.V. 50 Dangelo Hernandezi used for mcg Negra Quiroz buckle strap drum operator 8:22:29 Versed I.V. 1 mg Dangelo Hernandezi used for Negra Quiroz buckle strap drum operator 8:35:48 Fentanyl I.V. 25 Dangelo Hernandezi used for mcg Negra Quiroz buckle strap drum operator 8:35:58 Versed I.V. 0.5 Dangelo Hernandezi used for mg Negra Quiroz buckle strap drum operator 8:46:35 Fentanyl I.V. 25 Dangelo Nae used for mcg Negra Quiroz buckle strap drum operator 8:46:42 Versed I.V. 0.5 Dangelo Hernandezi used for mg Negra Quiroz buckle strap drum operator 9:05:04 Fentanyl I.V. 25 Dangelo Hernandezi used for mcg Negra Quiroz buckle strap drum operator 9:05:13 Versed I.V. 0.5 Dangelo Hernandezi used for mg Negra Quiroz RN procedure 9:18:36 Fentanyl I.V. 25 Dangelo Hernandezi used for mcg Negra Quiroz RN procedure 9:18:43 Versed I.V. 0.5 Dangelo Nae used for mg Negra Quiroz buckle strap drum operator Procedure Log Time Note 7:39:48 Rai Justino RT (R) (CV) sent for patient. Start room use. 7:39:58 Time tracking: Regular hours (M-F 7:00 - 5:00) 7:40:04 Plan of Care:Hemodynamics will remain stable., Cardiac rhythm will remain stable., Comfort level will be maintained., Respiratory function will remain adequate., Patient/ family verbilizes understanding of procedure., Procedure tolerated without complication., Recovers from procedure without complications.. 7:40:12 Patient received from Outpatients to IR Alert and oriented. Tansferred to table in Prone position. 7:40:13 Correct patient and procedure confirmed by team. 7:40:14 Signed procedure consent form obtained from patient. 7:40:15 ECG and BP/O2 sat monitors applied to patient. 7:40:16 Full Disclosure recording started 7:40:17 7:40:20 H&P Date Dictated: 05/30/2019 H&P Addendum completed by physician on day of procedure. (MUST COMPLETE FOR ALL OUTPATIENTS). 7:40:21 Pre-procedure instructions explained to patient. 7:40:21 Pre-op teaching completed and patient verbalized understanding. 7:40:26 Family unavailable. 7:40:27 Patient NPO since Midnight. 7:40:32 Is the patient allergic to Iodine/contrast media? No. 7:40:34 Is patient on blood thinner?No 7:40:38 Use device set IR Diagnostic 7:40:40 Bag Decanter (2002S) opened to sterile field. 7:40:40 Sterile Angiographic Pack opened to sterile field. 7:40:41 Tegaderm 4 x 4 ([id number]) opened to sterile field. 7:40:54 Patient diabetic? No. 7:40:55 7:40:56 ----Pre-sedation anethsthesia assessment.---- 7:40:58 Previous problem with sedation/anesthesia? No ? 7:40:59 Snore? Yes 7:41:01 Sleep apnea? No 7:41:02 Deviated septum? No 7:41:03 Opens mouth fully? Yes 7:41:04 Sticks out tongue? Yes 7:41:06 Airway obstruction? No ? 7:41:13 Dentures? No ? 7:41:21 Patient pain scale 0/10 no pain. 7:47:48 IV patent on arrival in left hand with 0.45%NaCl at [facility]. 7:47:50 Sharps counted by scrub and verified by R.N. 7:47:51 Alarms reviewed by R. N. 7:47:57 Right Lumbar was prepped with chlora-prep and draped in sterile fashion. 7:56:45 Vital chart was started 7:56:46 Baseline sample Acquired. 8:13:55 Heparin Flush Bag (1000units/500ml NS) 1 bags added to field was administered by Dangelo Omer MD; used for procedure; 8:14:10 Lidocaine 1% 20ml vial added to field was administered by Dangelo Omer MD; used for procedure; 8:17:30 Physician arrived 8:17:30 --------ALL STOP TIME OUT------ 8:17:31 Final Timeout: patient, procedure, and site verified with staff and physician. All members of the team are in agreement. 8:17:37 Lumbar site verified by team. 8:17:41 Fire Safety Assessment: A--An alcohol-based skin anteseptic being used preoperatively., C--Open oxygen or nitrous oxide is being used. 8:17:45 Sedation plan: IV Moderate Sedation Medication:Versed, Fentanyl 8:20:17 Procedure started. 8:20:22 Local anesthetic to Lumbar area with Lidocaine 1% by Dangelo Omer MD.INITIAL ACCESS ONLY 8:20:25 IV Extension Set opened to sterile field. 8:20:25 KIT, INTRODUCER ACCUSTICK II W/C ([id number]) opened to sterile field. 8:20:26 CHIBA 20 X 15 needle opened to sterile field. 8:20:26 GLIDE CATHETER 5FR ANGLED 65cm (CG507) opened to sterile field. 8:22:05 Fentanyl 50 mcg I.V. was administered by Nae Quiroz RN; used for procedure; 8:22:29 Versed 1 mg I.V. was administered by Nae Quiroz RN; used for procedure; 8:35:48 Fentanyl 25 mcg I.V. was administered by Nae Quiroz RN; used for procedure; 8:35:58 Versed 0.5 mg I.V. was administered by Nae Quiroz RN; used for procedure; 8:40:44 NITINOL .018 80cm wire ([id number]) opened to sterile field. 8:40:45 CHIBA 18 X 15 needle opened to sterile field. 8:43:26 GLIDE WIRE GT ANGLED 45 DEGREE .018 ([id number]) opened to sterile field. 8:46:35 Fentanyl 25 mcg I.V. was administered by Nae Quiroz RN; used for procedure; 8:46:42 Versed 0.5 mg I.V. was administered by Nae Quiroz RN; used for procedure; 8:49:35 GLIDE WIRE ANGLE 180cm (UA5951) opened to sterile field. 8:54:42 A Merit Impress KA 2 5Fr 40CM catheter ([id number]) was advanced over the wire and used for . 8:57:23 ROADRUNNER .035 145 glide wire ([id number]) opened to sterile field. 9:05:04 Fentanyl 25 mcg I.V. was administered by Nae Quiroz RN; used for procedure; 9:05:13 Versed 0.5 mg I.V. was administered by Nae Quiroz RN; used for procedure; 9:10:35 KIT, INTRODUCER ACCUSTICK II W/C ([id number]) opened to sterile field. 9:18:36 Fentanyl 25 mcg I.V. was administered by Nae Quiroz RN; used for procedure; 9:18:43 Versed 0.5 mg I.V. was administered by Nae Quiroz RN; used for procedure; 9:23:44 Procedure ended.(Physican Out) 9:24:47 Fluoroscopy time 26.90 minutes. 9:24:54 Fluoroscopy dose: 1833 mGy 9:24:54 Flurop Dose total: 1833 9:25:00 Contrast amount:Isovue 300 40ml. 9:25:02 Sharps counted by scrub and verified by R.N. 9:25:05 Insertion/operative site no bleeding no hematoma. 9:25:10 Post-op/insertion site Right Lumbar area dressed using a 4 x 4 and Tegaderm. 9:25:20 Post Lumbar area:stable 9:25:33 Post procedure instruction explained to patient.Patient verbalizes understanding. 9:26:47 Report given to Outpatients. 9:26:49 Patient transfered to Outpatients with Bed. 9:27:28 Vital chart was stopped Device Usage Item Name Manufacture Quantity Catalog Hospital Part Current Minim al Lot# / Number Charge Number Stock Stock Serial# Code Bag Decanter Microtek 1 [id number] 90973 669929 5 () Medical Inc. Sterile Cardinal 1 [id number] 967343 808123 5 Angiographic Health Pack Tegaderm 4 x 3M 1 1626W 997022 223085 435236 5 4 (1626W) IV Extension Hospira 1 60719-09 582578 97038 173028 5 65052TY Set KIT, [place] 2 [id number] 605322 234616 677368 5 [id number] INTRODUCER Scientific [id number] ACCUSTICK II W/C ([id number]) CHIBA 20 X 15 Cook Medical 1 [id number] 662405 773672 5 needle GLIDE Terumo 1 CG507 577216 733776 5 CATHETER 5FR ANGLED 65cm (CG507) NITINOL .018 Medtronic 1 [id number] 559302 516951 5 [id number] 80cm wire ([id number]) CHIBA 18 X 15 [employer] 1 Q75492 465223 098536 5 needle GLIDE WIRE GT Terumo 1 [id number] 834273 344825 5 ANGLED 45 DEGREE .018 ([id number]) GLIDE WIRE Terumo 1 GG7728 595437 636739 462601 5 ANGLE 180cm (RV6911) Merit Impress Merit 1 [id number] 065000 588772 5 KA 2 5Fr 40CM Medical catheter ([id number]) [facility] 1 V11726 145185 238478 886257 5 0867259 .035 145 glide wire (B05375) Signature Audit [place] Stage Time Signature Unsigned Intra-Procedure 05/30/2019 Rai 9:27:23 AM Justino RT (R) (CV) Signatures Monitor : Rai Signature : Justino RT Date : Time : [id number] [place] [address]
[2019-05-30 07:18] VITALS: BP 99/65; Ht 157.5 cm; Wt 135.6 kg
--- NOTE | 2019-05-30 09:49 | NUR ---
0940 RETURNED TO 2507 UNSUCESSFUL PERCUTANEOUS NEPROSTOMTOMY TUBE PLACEMENT. PT.DOSINGING FAMILY AT SIDE.
== END 2019-05-30 14:17 | disposition home or self-care (01) ==
LOC: D.OPS 06:23
PROVIDERS: ATTEND Urology
DX: N20.0 Calculus of kidney (principal); Z01.812 Encounter for preprocedural laboratory examination

== ENCOUNTER 2019-06-01 07:12 | Day surgery (SDC) | payer BC ==
[~2019-06-01] VITALS: Ht 157.5 cm; Wt 135.6 kg
[2019-06-01 07:47] LABS: HEMATOCRIT 35.3 % (36.0-48.0); HEMOGLOBIN 11.5 g/dL (12-16); MCHC 32.6 g/dL (31.0-37.0); MCV 82.9 fL (80.0-100.0); RBC 4.26 10x6/uL (4.00-5.40); RDW 16.3 % (11.5-14.5); WBC 5.1 10x3/uL (4.8-10.8)
[2019-06-01] MEDS ORDERED: HYDROCODON-ACE1 EAC7 PO (08:29)
[2019-06-01 08:35] VITALS: BP 97/58; Ht 157.5 cm; Wt 135.6 kg
--- NOTE | 2019-06-01 12:00 | NUR ---
REC'D FROM RR. DROWSY HOWEVER RESPONDS TO VERBAL STIMULI. NO FAMILY AT BEDSIDE. ORANGE JUICE AND FL TRAY SERVED TO PATIENT.
--- NOTE | 2019-06-01 12:30 | NUR ---
TOLERATED FL TRAY. NO VOID. NO FAMILY AT BEDSIDE. JUANCHO WILL HAVE TO CALL HER DAUGHTER FOR TRANSPORTATION.
--- NOTE | 2019-06-01 13:00 | NUR ---
AMBULATED TO THE BATHROOM AND VOIDED WITH DIFFICULTY. ATTEMPTED TO CALL DAUGHTER AND REACHED A VM RECORDING THAT NO VM HAS BEEN SET UP FOR THIS LIBERTARIAN.
--- NOTE | 2019-06-01 14:00 | NUR ---
ASKED PATIENT IF THERE WAS ANOTHER NUMBER TO CALL FOR HER TRANSPORTATION AND PATIENT RELATED SHE HAD TALKED WITH HER DAUGHTER AND SHE IS TRYING TO FIND SOMEBODY TO PICK HER UP.
--- NOTE | 2019-06-01 14:10 | NUR ---
IV DC'D WITH CATHETER INTACT. WRITTEN AND VERBAL DC INST. GIVEN TO PATIENT ALONG WITH F/U FOR KUB AND RX. VERBALIZED UNDERSTANDING.
--- NOTE | 2019-06-01 14:30 | NUR ---
SPOKE WITH PATIENT AGAIN REGARDING HER TRANSPORTATION. NOW RELATES HER DAUGHTER IS GOING TO CALL A CAB. HAD TRIED TO CALL DAUGHTER BUT CAN NOT REACH HER.
--- NOTE | 2019-06-01 15:00 | NUR ---
RECEIVED A CALL FROM SOMEONE CHECKING ON PATIENT. RELATED TO CALLER PATIENT IS WAITING FOR HER TANSPORTATION TO GET HERE. CALLER RELATED THAT PATIENT HAD TOLD HER SHE IS BEING ADMITTED. EXPLAINED TO CALLER NO PT IS BEING DISCHARGED AND WE ARE WAITING ON TRANSPORTATION. CALLER RELATED SHE WILL BE ON HER WAY.
--- NOTE | 2019-06-01 15:35 | NUR ---
DISCHARGED HOME WITH FAMILY [facility]IA [facility]. STABLE AT TIME OF DC.
--- NOTE | 2019-06-02 07:36 | OP ---
PATIENT NAME: HAILEY MEDINA MEDICAL RECORD: [id number] :57 [facility] DATE: SURGEON: KELLY CALVO MD DATE OF OPERATION: 06/01/2019 SURGEON: Kelly Calvo MD ANESTHESIA: General anesthesia by Selvin Coates CRNA. DIAGNOSES: Right infected 10 mm renal stone, history of emphysematous pyelonephritis with Escherichia coli. PROCEDURE: Right extracorporeal shockwave lithotripsy times 3000 shocks. FINDINGS: Radiodense right renal stones 10 mm in size. ESTIMATED BLOOD LOSS: None. CLINICAL HISTORY: This is a 64-year-old female, who initially presented through the Emergency Room with sepsis, fevers, chills, and rigors. Blood and urine cultures grew E. coli, which is sensitive to Levaquin. She was found on imaging to have an emphysematous pyelonephritis of the right kidney with a UPJ obstruction by 10 mm stone stuck in the right UPJ. At that time, I inserted a right ureteral stent. Recently, we attempted to perform a right percutaneous nephrolithotomy to remove the stone. However, the radiologist could not get access into the kidney. She comes now to have a right ESWL done to treat the stone. I have asked her to remain on oral Levaquin for antibiotic suppression. However, the patient is very noncompliant and she has not been taking the antibiotic medications. We are giving her Levaquin IV fashion designer to the OR today. DESCRIPTION OF PROCEDURE: The patient was placed on the treatment table. We visualized the stone and then she was given general anesthetic in supine position. Due to her large size, we had to put abdominal compression in order to stabilize the stone position. The stone was targeted in 2 planes and 3000 shocks were given to the stone. The stone was seen to break up at the end of the procedure. I have given her a prescription for pain medications with Ball 5/325 times 28 tablets p.r.n., and Levaquin for 30 days 500 mg. I will see her back in 2 weeks' time with a KUB. If the stone is gone at that time, then I can remove the right ureteral stent. TRANSINT:[id number] Voice Confirmation ID: [id number] DOCUMENT ID: [id number] KELLY CALVO MD at 0736 CC: [id number] DICTATION DATE: 06/01/19 1106 ACCOUNTING PRACTICE MANAGER: 06/01/[address] [facility] 06/01/19 [address] [place] [address]
== END 2019-06-01 15:35 | disposition home or self-care (01) ==
LOC: D.OPS 07:12 → D.PAN 10:00 → D.OPS 10:30
PROVIDERS: Anesthesiology; ATTEND Urology
DX: N20.0 Calculus of kidney (principal); Z79.2 Long term (current) use of antibiotics; Z01.812 Encounter for preprocedural laboratory examination

== ENCOUNTER → 2019-06-15 10:04 | Outpatient (CLI) | payer BC ==
[2019-06-01 08:35] VITALS: BMI 54.8
[~2019-06-15 10:04] MED LIST changes: +HYDROCODON-ACE1 EAC7 PO; +LEVOFLOXACIN500 MG PO
== END | disposition home or self-care (01) ==
LOC: D.RAD 06-07 10:00
PROVIDERS: ATTEND Urology
DX: N20.0 Calculus of kidney (principal)

== ENCOUNTER 2019-06-20 08:46 | Day surgery (SDC) | payer BC ==
[~2019-06-20] VITALS: Ht 157.5 cm; Wt 136.1 kg
[~2019-06-20 08:46] MED LIST changes: -LEVOFLOXACIN500 MG PO
[2019-06-20 09:38] LABS: CALC OSMOLALITY 283 mosm/kg (275-300); CALCIUM 8.6 mg/dL (8.5-10.1); CARBON DIOXIDE 23.7 mmol/L (21.0-32.0); CHLORIDE - SERUM 107 mmol/L (98-107); CREATININE - SERUM 0.7 mg/dL (0.6-1.3); GLUCOSE 104 mg/dL (74-106); POTASSIUM - SERUM 4.5 mmol/L (3.5-5.1); SODIUM 142 mmol/L (136-145); UREA NITROGEN 14 mg/dL (7-18); eGFR NON AFRICAN AMERICAN 90 mL/min (90-120)
[2019-06-20] MEDS ORDERED: LEVOFLOXACIN500 MG PO (10:03)
[2019-06-20 10:07] VITALS: BP 101/52; Ht 157.5 cm; Wt 136.1 kg
[2019-06-20 10:37] LABS: HEMATOCRIT 38.1 % (36.0-48.0); HEMOGLOBIN 12.2 g/dL (12-16); MCH 26.9 pg (26.0-34.0); MCV 84.1 fL (80.0-100.0); MEAN PLATELET VOLUME 8.6 fL (7.4-10.4); RBC 4.53 10x6/uL (4.00-5.40); RDW 14.8 % (11.5-14.5)
--- NOTE | 2019-06-20 13:32 | NUR ---
PT VOIDED. PT LEFT UNIT VIA WC AT 1332.
--- NOTE | 2019-06-20 17:48 | OP ---
PATIENT NAME: HAILEY MEDINA MEDICAL RECORD: [id number] :57 LOCATION:D.OPS ADMISSION DATE: SURGEON: MARIO CALVO MD DATE OF OPERATION: 06/20/2019 SURGEON: Mario Calvo MD ANESTHESIA: TIVA by Charity Mcgrath CRNA. DIAGNOSIS: Retained right ureteral stent. PROCEDURES: Cystoscopy and right ureteral stent removal. BLOOD LOSS: None. CLINICAL HISTORY: This is a 64-year-old female, who presented through the Emergency Room with fevers, sepsis, chills and rigors. Blood and urine cultures grew E. coli sensitive to Levaquin. She was found on imaging to have emphysematous pyelonephritis of the right kidney with a right UPJ obstruction by a 10 mm stone, which was stuck in that position. At that time, I inserted a right ureteral stent. She then had an attempt at a right percutaneous nephrolithotomy, which did not proceed as the radiologist could not get access. I then treated the stone with ESWL. Subsequent followup shows that there is no further stone residue left on the KUB. She comes to have the stent removed. She is not allergic to any medications. She was given Ancef consulting technical director to the OR. DESCRIPTION OF PROCEDURE: The patient was given IV sedation. She was then placed into the lithotomy position and prepped and draped. A 21-Vietnamese cystoscope with 30-degree lens was used for visualization. The stent was seen and grasping forceps were used to entirely remove the stent. The patient was then awakened and brought back to the preoperative holding area. She has Levaquin to finish her course of antibiotics. I will see her on a p.r.n. basis for followup. TRANSINT:[id number] Voice Confirmation ID: [id number] DOCUMENT ID: [id number] MARIO CALVO MD at 1748 CC: [id number] DICTATION DATE: 06/20/19 1206 MANAGER QUANTITATIVE: 06/20/19 1225 [facility] 06/20/19 [address] [id number]
== END 2019-06-20 13:35 | disposition home or self-care (01) ==
LOC: D.OPS 08:46
PROVIDERS: Anesthesiology; ATTEND Urology
DX: Z46.6 Encounter for fitting and adjustment of urinary device (principal); Z01.812 Encounter for preprocedural laboratory examination

== ENCOUNTER 2020-08-02 19:36 | Emergency (ER) | payer BC ==
[~2020-08-02] VITALS: Ht 157.5 cm; Wt 139.5 kg
[~2020-08-02 19:36] MED LIST changes: +LEVOFLOXACIN500 MG PO
[2020-08-02 19:49] VITALS: BP 132/47; Ht 157.5 cm; Wt 139.5 kg
[2020-08-02] MEDS ORDERED: CORTISPORIN OIN15 GM TOPICAL (21:14)
== END 2020-08-02 21:55 | disposition home or self-care (01) ==
LOC: D.ER 19:36
DX: L03.114 Cellulitis of left upper limb (principal); I10 Essential (primary) hypertension; J45.909 Unspecified asthma, uncomplicated; K21.9 Gastro-esophageal reflux disease without esophagitis; M25.532 Pain in left wrist

== ENCOUNTER 2020-08-25 14:18 | Emergency (ER) | payer BC ==
[~2020-08-25] VITALS: Ht 157.5 cm; Wt 136.4 kg
[~2020-08-25 14:18] MED LIST changes: +CORTISPORIN OIN15 GM TOPICAL
[2020-08-25 14:57] VITALS: BP 116/49; Ht 157.5 cm; Wt 136.4 kg
[2020-08-25] MEDS ORDERED: MUPIROCIN22 GM TOPICAL (20:05)
== END 2020-08-25 20:32 | disposition home or self-care (01) ==
LOC: D.ER 14:18
DX: F42.4 Excoriation (skin-picking) disorder (principal); T63.391A Toxic effect of venom of other spider, accidental (unintentional), initial encounter; I10 Essential (primary) hypertension; J45.909 Unspecified asthma, uncomplicated; K21.9 Gastro-esophageal reflux disease without esophagitis